=== PATIENT | female | born 1935 | race Caucasian/White ===

== ENCOUNTER → 2016-12-08 | Outpatient (CLI) | payer OTHER, MEDICARE, MEDICAID ==
[~2016-12-08] MED LIST: ASA CHILDREN'S81 MG PO; BOOST237 ML PO; COLACE-DPS100 MG PO; COUMADIN1 MG PO; DECADRON-DPS1 MG PO; DULCOLAX-DPS10 MG PR; KEFLEX-DPS500 MG PO; KLOR-CON M2020 ME1 PO; LIPITOR DPS40 MG PO; MIRALAX PACKET17 GM PO; NORVASC5 MG PO; REVLIMID15 MG PO; SYNTHROID DPS0.1 MG PO; TYLENOL EXTRA500 M1 PO
== END | disposition home or self-care (01) ==
LOC: RAD.S 13:15
DX: R06.02 Shortness of breath (principal); J90 Pleural effusion, not elsewhere classified

== ENCOUNTER → 2017-02-13 | Outpatient (CLI) | payer MEDICARE | END | disposition home or self-care (01) | LOC: RAD.S 11:00 | DX: R05 Cough (principal); J98.11 Atelectasis ==

== ENCOUNTER 2017-02-24 18:02 | Emergency (ER) | payer MEDICARE, MEDICAID ==
--- NOTE | 2017-02-28 14:46 | ER ---
ADMIT: 02/24/2017 RM/LOC: ER [facility] MR#: [id number] [id number] [place] [address] Emergency Room Report SEX: F AGE: 81 : 1935 DATE: 02/24/2017 ADDENDUM: CHIEF COMPLAINT: Fever. HISTORY OF PRESENT ILLNESS: This is an 81-year-old female, who was sent over from [facility] for a fever. Her temp on arrival is 101.5. She really has no complaints. Denies any pain except she just has a little bit of bilateral shoulder tightness which sounds chronic. PAST MEDICAL HISTORY: Hypertension, hypothyroid, anemia, CAD, osteoporosis, vitamin D deficiency, CVA, and cataract surgery. MEDICATIONS: Please see nurse's note. This does include Coumadin. COURSE IN THE EMERGENCY ROOM: Sepsis protocol was done. Overall findings, her PT/INR were elevated, her PT was 64.3, INR was 5.85, lactic acid was 0.7. UA showed 3+ leukocyte esterase, 245 white blood cells, a few white blood cell clumps. CMP is normal except for BUN of 30, creatinine of 1.2, albumin 2.7, magnesium 1.7. Her GFR is low at 43. Cardiac enzymes are all normal. Her CBC is normal except for white count of 12.9 and hemoglobin of 11.8. Her procalcitonin is 0.42. I did speak with Dr. Barros regarding this patient. Since she lives at [facility] and has full health, we are going to send her back to [facility], she was given Rocephin 2 g IV here. Send her home with Keflex 500 mg b.i.d. x7 days. At this time, we are going to hold her Coumadin. The [facility] is to recheck her INR and her CBC on Sunday, and then follow up with Dr. Ashley if her symptoms are worsening. CLINICAL IMPRESSION: 1. Urinary tract infection. 2. Supratherapeutic INR secondary to Coumadin. ENMA Damian / Karl Pagan MD / modl JOB #: [id number] CC: Nam Cordova MD, Attending Physician Jerry Ashley MD, Family Physician
== END 2017-02-24 21:20 | disposition home or self-care (01) ==
LOC: ER 18:02
DX: N39.0 Urinary tract infection, site not specified (principal); I10 Essential (primary) hypertension; E03.9 Hypothyroidism, unspecified; R79.1 Abnormal coagulation profile; I25.10 Atherosclerotic heart disease of native coronary artery without angina pectoris; Z86.73 Personal history of transient ischemic attack (TIA), and cerebral infarction without residual deficits; Z98.49 Cataract extraction status, unspecified eye; Z87.891 Personal history of nicotine dependence; Z79.01 Long term (current) use of anticoagulants; Z79.899 Other long term (current) drug therapy

== ENCOUNTER → 2017-02-28 | Outpatient (CLI) | payer MEDICARE, MEDICAID | END | disposition home or self-care (01) | LOC: RAD.S 13:49 | DX: Z09 Encounter for follow-up examination after completed treatment for conditions other than malignant neoplasm (principal); Z86.718 Personal history of other venous thrombosis and embolism ==